=== PATIENT | female | born 1985 | race African-American/Black ===

== ENCOUNTER 2017-02-02 05:06 | Emergency (ER) | payer MEDICAID ==
[~2017-02-02] VITALS: Ht 160 cm; Wt 78.0 kg
[~2017-02-02 05:06] MED LIST: DOCU-30 PO; HYDR1TAB12 PO; IBUP-1222 PO
[2017-02-02 06:18] LABS: ASPARTATE AMINO TRANSFERASE 95 U/L (15-37); BLOOD UREA NITROGEN 13 mg/dL (7-18)
[2017-02-02] MEDS ORDERED: POTASSIUM CHLORIDE 20 MEQ TAB.ER.PRT PO ONE (06:30)
[2017-02-02 06:49] VITALS: BP 122/79
== END 2017-02-02 06:56 | disposition home or self-care (01) ==
LOC: ED 06:50
DX: K29.00 Acute gastritis without bleeding (principal); K80.20 Calculus of gallbladder without cholecystitis without obstruction
CPT/HCPCS: 36415; 76700; 80053; 81003; 83690; 84703; 85025; 86677